=== PATIENT | female | born 1945 | race Two or more races ===

== ENCOUNTER 2020-10-01 07:05 | Day surgery (SDC) | payer OTHER ==
[~2020-10-01 07:05] MED LIST: CITALOPRAM HBR20 MG PO; CLONAZEPAM0.5 MG PO; COZAAR100 MG PO; GABAPENTIN100 M2 PO; REFRESH LIQUIGE15 ML OP; SULINDAC200 MG PO; TIMOPTIC5 ML OTIC; TYLENOL ARTHRI650 MG PO
== END 2020-10-01 15:40 | disposition home or self-care (01) ==
LOC: CIR.AMB 07:05
PROVIDERS: ATTEND Obstetrics & Gynecology Gynecology
DX: T85.193A Other mechanical complication of implanted electronic neurostimulator, generator, initial encounter (principal); Z20.828 Contact with and (suspected) exposure to other viral communicable diseases
CPT/HCPCS: 64590; 64595; 95971; L8679